=== PATIENT | female | born 1930 | race Caucasian/White ===

== ENCOUNTER 2016-07-08 16:01 | Emergency (ER) | payer MEDICARE, MEDICAID ==
[2016-07-26] MEDS ORDERED: COLACE-DPS100 MG PO (19:13)
[2016-07-26] MEDS ORDERED: COZAAR DPS50 MG PO (19:13)
[2016-07-26] MEDS ORDERED: ASA CHILDREN'S81 MG PO (19:13)
[2016-07-26] MEDS ORDERED: CATAPRES-DPS0.1 MG PO (19:13)
[2016-07-26] MEDS ORDERED: NORVASC5 MG PO (19:14)
[2016-07-26] MEDS ORDERED: FEOSOL-DPS325 MG PO (19:14)
[2016-07-26] MEDS ORDERED: LASIX DPS20 MG PO (19:14)
[2016-07-26] MEDS ORDERED: OMEGA-3 DPS1000 MG PO (19:14)
[2016-07-26] MEDS ORDERED: PEPCID DPS20 MG PO (19:14)
[2016-07-26] MEDS ORDERED: TENORMIN DPS50 MG PO (19:15)
[2016-07-26] MEDS ORDERED: SYNTHROID DP0.025 MG PO (19:15)
[2016-07-26] MEDS ORDERED: LEVAQUIN DPS250 MG PO (19:16)
[2016-07-26] MEDS ORDERED: FLAGYL-DPS500 MG PO (19:16)
[2016-07-26] MEDS ORDERED: FLEXERIL DPS5 MG PO (19:16)
[2016-07-26] MEDS ORDERED: MAALOX DPS30 ML PO (19:17)
[2016-07-26] MEDS ORDERED: LOMOTIL-DPS1 TAB PO (19:17)
[2016-07-26] MEDS ORDERED: NORCO 5-325 TA1 EACH PO (19:17)
[2016-07-26] MEDS ORDERED: MIRALAX PACKET17 GM PO (19:17)
[2016-07-26] MEDS ORDERED: TYLENOL DPS325 MG PO (19:18)
[2016-07-26] MEDS ORDERED: SURFAK DPS240 MG PO (19:18)
--- NOTE | 2016-08-21 15:33 | ER ---
ADMIT: 07/08/2016 RM/LOC: ER [facility] MR#: [id number] 2620 [facility] [address] [place], [place] [address] CODIE ORTIZ [address] [facility] [address] [place] [address] Emergency Room Report SEX: F AGE: 85 : 1930 DATE: 07/08/2016 ADDENDUM: This patient comes to the ER because she is having issues with constipation. She states she has not had a bowel movement for 5 days and has a lot of pain in her rectum. On physical exam, she does have tenderness in her rectum but I did not feel a fecal impaction. KUB showed increased stool. We did give her an enema, which was later repeated, and it gave her no relief here. We did send her home with mag citrate, and she is to go home, drink half a bottle tonight, and then half a bottle in the morning if she still has not had a bowel movement. She is also to call Dr. Ordonez tomorrow if she is not feeling better. Please see my T-sheet. SAMY Salmeron / Kieran Kuhn MD / frederick JOB #: [id number] CC: Kieran Kuhn MD, Attending Physician Natividad Ordonez MD, Family Physician
[2016-12-26] MEDS ORDERED: DULCOLAX-DPS10 MG PR (14:30)
[2016-12-26] MEDS ORDERED: CARAFATE DPS1 GM PO (14:31)
[2016-12-26] MEDS ORDERED: XANAX DPS0.25 MG PO (14:31)
[2016-12-26] MEDS ORDERED: TYLENOL DPS325 MG PO (14:31)
[2016-12-26] MEDS ORDERED: REQUIP1 MG PO (14:32)
[2016-12-26] MEDS ORDERED: COLACE-DPS100 MG PO (14:33)
== END 2016-07-08 18:52 | disposition home or self-care (01) ==
LOC: ER 16:01
DX: K59.00 Constipation, unspecified (principal); I10 Essential (primary) hypertension; E78.5 Hyperlipidemia, unspecified; Z88.0 Allergy status to penicillin; Z79.82 Long term (current) use of aspirin; Z79.899 Other long term (current) drug therapy

== ENCOUNTER 2016-07-22 17:01 | Inpatient (IN) | payer MEDICARE, MEDICAID ==
[~2016-07-22] VITALS: Ht 162.6 cm; Wt 57.1 kg
--- NOTE | 2016-07-25 08:02 | HP ---
ADMIT: 07/22/2016 RM/LOC: 619 [facility] MR#: [id number] 2620 [facility] [address] [place], [place] [address] CODIE ORTIZ [address] [facility] [address] [place] [address] History and Physical SEX: F AGE: 85 : 1930 DATE OF SERVICE: HISTORY OF PRESENT ILLNESS: She presents with abdominal distention. She presents to the office here at 03:30 in the afternoon. She reports that her abdomen has been distended since yesterday evening. She had several medium- size stools while developing abdominal distention, increasing abdominal pain; burping and belching, but she has not vomited. She has not eaten today. She has a past medical history of a possible volvulus dating back to 2007. She has not had any difficulty since that time. She does have a history of chronic lymphocytic leukemia with progressive elevation in her white blood cell count. Prior to this hospitalization, it had been running 40,000, it is 63,000 at the time of this dictation. She presents for further assessment of this abdominal distention. PAST MEDICAL HISTORY: She has a past medical history of congestive heart failure, degenerative joint disease, diverticular disease, hyponatremia, hyperlipidemia, hypertension, diverticulitis, reflux disease, hiatal hernia as well as this history of volvulus in the past, which resolved on its own apparently. History of lymphocytic leukemia. SOCIAL HISTORY: She lives at home independently. She is a former smoker. She is . FAMILY HISTORY: Noncontributory. ALLERGIES: SHE IS ALLERGIC TO PENICILLIN. CURRENT MEDICATIONS: As follows; she is on: 1. Alprazolam 0.25 mg one tablet every 8 hours p.r.n. anxiety. 2. Amlodipine 5 mg one tablet b.i.d. 3. Aspirin 81 mg daily. 4. Atenolol 50 mg one tablet b.i.d. 5. Carafate 1 g p.o. every p.m. 6. Clonidine 0.1 mg p.o. b.i.d. 7. Docusate sodium 100 mg daily. 8. Ferrous sulfate 325 mg daily. 9. Fish oil. 10.Flexeril 5 mg p.r.n. muscle spasm. 11.Lasix 20 daily. 12.Hydrocodone. 13.Levothyroxine 25 mcg daily. 14.Lomotil p.r.n. 15.Losartan 100 mg daily. 16.Nitroglycerin p.r.n. 17.Omeprazole 20 mg daily. 18.Ranitidine 150 mg one tablet p.o. b.i.d. 19.Tylenol p.r.n. PHYSICAL EXAMINATION: VITAL SIGNS: Today her weight is 128 pounds, her heart ADMIT: 07/22/2016 RM/LOC: 619 [facility] MR#: [id number] [address] [address] CODIE ORTIZ [address] [facility] [address] [place] [address] History and Physical SEX: F AGE: 85 : 1930 rate is 57, blood pressure is 151/48. ABDOMEN: Distended. She has very hypoactive bowel sounds. Her abdomen is tender to touch. It is distended and rounded. EXTREMITIES: No evidence of edema. HEART: Regular rhythm with a soft systolic murmur. ASSESSMENT: Admission of an elderly 85-year-old, who has had a history of "kinked bowel in the past," questionable volvulus dating back greater than 10 years with evidence of abdominal distention on plain film appears to have evidence of small-bowel dilatation consistent with possible small bowel obstruction. History of chronic lymphocytic leukemia with elevation in white blood cell count to 63,000. Evidence of anemia. Hyponatremia. At this time, we will admit to [facility]. We will start IV fluids, normal saline at 75 mL an hour and Pepcid IV. We will get further assessment with a CT scan of her abdomen and pelvis. We will ask Hematology to continue to follow her with her jump in her white blood cell count, get a peripheral smear. Also ask for surgical consultation. We will continue to follow closely. As per her request, she does not want her CLL treated. She had been on a treatment program within the last 6 months which she was intolerant to. Natividad Ordonez MD/ frederick JOB #: [id number] CC: Natividad Ordonez MD, Attending Physician Natividad Ordonez MD, Family Physician
[2016-07-26] MEDS ORDERED: COZAAR DPS50 MG PO (19:13)
[2016-07-26] MEDS ORDERED: COLACE-DPS100 MG PO (19:13)
[2016-07-26] MEDS ORDERED: ASA CHILDREN'S81 MG PO (19:13)
[2016-07-26] MEDS ORDERED: CATAPRES-DPS0.1 MG PO (19:13)
[2016-07-26] MEDS ORDERED: PEPCID DPS20 MG PO (19:14)
[2016-07-26] MEDS ORDERED: LASIX DPS20 MG PO (19:14)
[2016-07-26] MEDS ORDERED: NORVASC5 MG PO (19:14)
[2016-07-26] MEDS ORDERED: FEOSOL-DPS325 MG PO (19:14)
[2016-07-26] MEDS ORDERED: OMEGA-3 DPS1000 MG PO (19:14)
[2016-07-26] MEDS ORDERED: SYNTHROID DP0.025 MG PO (19:15)
[2016-07-26] MEDS ORDERED: TENORMIN DPS50 MG PO (19:15)
[2016-07-26] MEDS ORDERED: LEVAQUIN DPS250 MG PO (19:16)
[2016-07-26] MEDS ORDERED: FLEXERIL DPS5 MG PO (19:16)
[2016-07-26] MEDS ORDERED: FLAGYL-DPS500 MG PO (19:16)
[2016-07-26] MEDS ORDERED: NORCO 5-325 TA1 EACH PO (19:17)
[2016-07-26] MEDS ORDERED: LOMOTIL-DPS1 TAB PO (19:17)
[2016-07-26] MEDS ORDERED: MAALOX DPS30 ML PO (19:17)
[2016-07-26] MEDS ORDERED: MIRALAX PACKET17 GM PO (19:17)
[2016-07-26] MEDS ORDERED: SURFAK DPS240 MG PO (19:18)
[2016-07-26] MEDS ORDERED: TYLENOL DPS325 MG PO (19:18)
--- NOTE | 2016-07-27 09:02 | CO ---
ADMIT: 07/22/2016 RM/LOC: 619 [facility] MR#: [id number] [address] [facility] [address] [place], [place] [address] CODIE ORTIZ [address] [address] Consultation SEX: F AGE: 85 : 1930 DATE OF CONSULTATION: 07/24/2016 ATTENDING PHYSICIAN: Natividad Ordonez MD CONSULTING PHYSICIAN: Roland Costa MD PROBLEM: Air within the bladder. HISTORY OF PRESENT ILLNESS: This 85-year-old female was hospitalized due to abdominal distention presenting to Dr. Ordonez's office on 07/22/2016. During her evaluation in the hospital, an abdominal and pelvic CT scan was obtained revealing normal upper tracts; however, there was a small amount of air within the bladder prompting urologic consultation. According to Ms. Ortiz, she has been voiding without urgency, frequency, hesitancy, strain to void or a feeling of incomplete emptying. There has been no pneumaturia or recurrent urinary tract infections. She has had no previous urologic surgery. She denies history of nephrolithiasis. PAST MEDICAL HISTORY: MEDICATIONS: 1. Amlodipine 5 mg b.i.d. 2. Aspirin 81 mg daily. 3. Atenolol 50 mg b.i.d. 4. Carafate 1 g in the evening. 5. Clonidine 0.1 mg b.i.d. 6. Docusate sodium 100 mg daily. 7. Ferrous sulfate 325 mg daily. 8. Fish oil. 9. Flexeril 5 mg p.r.n. 10.Lasix 20 mg daily. 11.Hydrocodone p.r.n. 12.Levothyroxine 25 mcg daily. 13.Lomotil p.r.n. 14.Losartan 100 mg daily. 15.Nitroglycerin p.r.n. 16.Omeprazole 20 mg daily. 17.Amantadine 150 mg b.i.d. 18.Tylenol p.r.n. ALLERGIES: Penicillin. OPERATIONS: None. REVIEW OF SYSTEMS: She does have a history of congestive heart failure, degenerative joint disease, diverticular disease, hyponatremia, hyperlipidemia, essential hypertension, gastroesophageal reflux disease, hiatal hernia along with a volvulus, also lymphocytic leukemia. FAMILY HISTORY: Negative for urologic problem. ADMIT: 07/22/2016 RM/LOC: 619 [facility] MR#: [id number] [address] [address] CODIE ORTIZ [address] [place] [address] Consultation SEX: F AGE: 85 : 1930 SOCIAL HISTORY: She lives at home independently. She is a former smoker, and she is . PHYSICAL EXAMINATION: GENERAL: This is a healthy-appearing, 85-year-old, in no acute distress. HEENT: Unremarkable. NECK: Supple without adenopathy. ABDOMEN: Soft, slightly distended, but nontender to palpation throughout. EXTREMITIES: Full range of motion without deformity. NEUROLOGICAL: She is grossly intact. LABORATORY DATA: Sodium 137, potassium 4.0, chloride 107, CO2 of 23, BUN 8, glucose 90, and creatinine of 0.8. CBC showed a white count of 36,100, and hematocrit of 30.0. Urinalysis did demonstrate a positive nitrites with 1+ protein without leukocyte and was leukocyte negative. ASSESSMENT: Recent findings of air within the bladder, which may or may not being anything at this point given the fact that she has no infection. She has had no pneumaturia. 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 PLAN: Once the patient is home, we will range for her to return to the office for office cystoscopy. Thank you for allowing us to assist in the care of Ms. Ortiz, and we will keep you informed as to her followup. R Maxim Costa MD/ frederick JOB #: [id number] CC: Natividad Ordonez MD, Attending Physician Natividad Ordonez MD, Family Physician Natividad Ordonez MD
--- NOTE | 2016-08-01 08:22 | DS ---
ADMIT: 07/22/2016 RM/LOC: 619 [facility] MR#: [id number] 26[address] [facility] [address] [place], [place] [address] LAILA ORTIZ [address] [facility] [address] [place] [address] Discharge Summary SEX: F AGE: 85 : 1930 ADMISSION DATE: 07/22/2016 DISCHARGE DATE: 07/25/2016 DISCHARGE DIAGNOSES: 1. Abdominal distention, evidence of a colonic ileus, air and debris in bladder with planned outpatient evaluation by Dr. Costa with cystoscopy. 2. History of congestive heart failure. 3. History of hyponatremia. 4. History of lymphocytic leukemia. 5. Hyperlipidemia. 6. Hypertension. 7. Diverticular disease. 8. Reflux disease. HISTORY OF PRESENT ILLNESS: Well documented in her H and P. consultations were obtained through Surgery as well as Urology. Her laboratory and radiographic assessment is as follows. On admission, her white count was 58,000, hemoglobin 10.8, and platelet count of 34,000. Discharge white count of 36.1. Urinalysis showed 1+ protein, nitrites positive, leukocytes negative. Serum chemistry showed sodium 139, potassium 4.1, BUN and creatinine of 11 and 0.9, albumin 2.8. CT of her abdomen showed moderate constipation with few mildly prominent loops of small bowel. Findings are nonspecific, however, earlier partial small bowel obstruction cannot be excluded. There is [id number] amount of ascites within the abdomen and pelvis, etiology uncertain. CTA of chest showed 11-mm ground-glass nodule in the posterior aspect of the right upper lobe, 6-month followup is considered. Right-sided pleural effusion with moderate compression atelectasis. Chest x-ray showed chronic interstitial markings that are slightly more prominent than on the previous exam, underlying inflammatory changes cannot be excluded. Small right-sided pleural effusion. Her abdominal flat plate, persistent nonspecific bowel gas pattern. Ultrasound of kidneys, no hydronephrosis. Debris along the posterior wall of the bladder, this could be due to infection or possible hemorrhage, probable air causing artifact anteriorly within the bladder. EKG showed sinus bradycardia. HOSPITAL COURSE: Laila is a well-known patient of mine, who has a past medical history of chronic lymphocytic leukemia. She also has a history of known coronary disease, hypertension, hyperlipidemia, reflux disease, hiatal hernia, and hyponatremia. She was admitted to the hospital after 24 hour period of abdominal bloating and belching. She has had a history of partial small bowel obstruction dating back 10 years ago. She has a flat plate of her abdomen done in the office which showed what I felt was small bowel dilatation. Subsequently was admitted to [facility] for further evaluation and care. We did ask Surgery to follow as well as Hematology to follow. She was placed on Unasyn and morphine. UA was obtained. As she was allergic to Unasyn, she was changed to Levaquin and Flagyl by Dr. Reyez. As per her request, she is a DNR status. It was noted on her CT scan that there was questionable air in the bladder as well as ADMIT: 07/22/2016 RM/LOC: 619 [facility] MR#: [id number] [address] [place] [id number] LAILA ORTIZ [address] [facility] [address] [place] [address] Discharge Summary SEX: F AGE: 85 : 1930 debris. I did ask Dr. Costa to follow. She was also noted to have a nodularity present in her lungs as well as right scapular changes. Further evaluation was obtained with CT of chest. She continued to have improvement. She started to pass gas as well as have bowel movements. Her abdominal distention did resolve. She had evidence of mild renal insufficiency and her medications were changed as appropriate. Levaquin was decreased to 250 mg IV daily. Her white count did come down. Her diet was advanced. She was followed daily by surgery. Activity level was increased. She was subsequently discharged with improvement of her bowels less distention. She will have outpatient assessment of her bladder with cystoscopy. In addition, we set her up for a CT scan of her chest in 6 weeks. She will follow up with me in less than a week. She was discharged home in stable condition. We will follow her up in clinic as need be, but we will see her again in a week. Please see her medications at discharge per her MAR. Natividad Ordonez MD/ frederick JOB #: [id number] CC: Natividad Ordonez MD, Attending Physician Natividad Ordonez MD, Family Physician
--- NOTE | 2016-08-14 10:45 | CO ---
ADMIT: 07/22/2016 RM/LOC: 619 [facility] MR#: [id number] 2620 [facility] [address] [place], [place] [address] CODIE ORTIZ [address] [address] Consultation SEX: F AGE: 85 : 1930 DATE OF CONSULTATION: 07/22/2016 ATTENDING PHYSICIAN: Natividad Ordonez MD CONSULTING PHYSICIAN: Edmond Reyez MD CHIEF COMPLAINT: Abdominal discomfort and abdominal distention, history of CLL, question small bowel obstruction. HISTORY OF PRESENT ILLNESS: This is a pleasant 85-year-old female patient whom I know from several years ago. I had actually done an EGD and colonoscopy on her back in August of 2007. At that time, she had a very difficult colonoscopy. In fact, I was unable to get through the colon due to the tortuosity of her sigmoid colon. We did an air contrast barium enema, which she was unable to then pass the contrast. After that, she had to be admitted for pain control and to allow the contrast to pass out. She ultimately underwent a laparoscopic Bill fundoplication shortly thereafter on 10/01/2007. She did have a small hiatal hernia and reflux. This was done around a 48-[place] bougie. The surgery went well and she recovered nicely from that. She now though has a diagnosis of CLL which she had started treatment with some chemotherapy about a month ago, I think she said June 22. She only tolerated about 5 days of that because it caused abdominal distention and abdominal pain for her, so she has been off the treatment since then. Her white count has always been elevated. In fact with the treatment, it was as high as 70,000. Now here today, it has been anywhere from 40,000 up to over 50,000 on a recheck it sounds like. She has had intermittent chills for last several months. She has not felt hungry. She says her appetite has been pretty poor. She has been able to pass bowel movements and flatus even as recently as today this morning. She says she had pretty normal bowel movements yesterday. She has not really necessarily been nauseated. She has had some belching a little bit. She has been able to tolerate liquids though throughout the day. She has not necessarily had a fever that she is aware of. She was admitted by Dr. Ordonez because of this abdominal distention and discomfort for IV fluids and bowel rest, and I was asked to see in surgical consultation. The patient has never had a bowel obstruction before, but again she did have that ileus or difficulty passing flatus after the colonoscopy back in 2007 and has a known very tortuous sigmoid colon with numerous diverticula. She cannot really locate a specific area that hurts her more than another area that is kind of diffuse abdominal discomfort for her at this time. PAST MEDICAL HISTORY: Illnesses again include the CLL. PAST SURGICAL HISTORY: She has had an open cholecystectomy, laparoscopic Bill fundoplication, then a vaginal hysterectomy. ALLERGIES: I BELIEVE ARE NONE. MEDICATIONS: All well outlined on the chart. Of note, she had been on a ADMIT: 07/22/2016 RM/LOC: 619 [facility] MR#: [id number] [address] [address] CODIE ORTIZ [address] [place] [address] Consultation SEX: F AGE: 85 : 1930 chemo drug, but that has currently been held, it sounds like. SOCIAL HISTORY: I believe she lives independently. She denies tobacco. No alcohol use. FAMILY HISTORY: Noncontributory. REVIEW OF SYSTEMS: A 10-point review of systems is essentially negative with the exception of her current abdominal distention, decreased bowel movements although she had been passing normal bowel movements as recently as yesterday and some flatus even this morning. Some nausea but no vomiting. She does have a little bit of belching with this. PHYSICAL EXAMINATION: GENERAL: She is alert. She is oriented. She is sitting up in the chair. She seems pretty comfortable at this time. VITAL SIGNS: Stable. HEENT: Normal. No adenopathy. LUNGS: Clear bilaterally. HEART: Regular. She does have a slight murmur heard best at left 2nd intercostal space. ABDOMEN: Thin but it is obviously distended, somewhat tympanitic. She does have some mild discomfort throughout but no peritoneal signs. No guarding. No rebound. Her belly is actually pretty soft. I was able to press on her pretty hard, and she again is uncomfortable diffusely. If having it localized to one particular area, maybe the left lower quadrant is the most uncomfortable spot for her, but again nothing that I would call peritoneal signs at this time. No masses are appreciated. No organomegaly is noted. EXTREMITIES: Warm and pink without edema. LABORATORY DATA: Sodium is 132, potassium of 4.0, chloride of 97, CO2 28, BUN of 13, creatinine of 1, glucose 89. Her albumin is 3.1. LFTs are all normal. White blood cell count is 40.6, hemoglobin of 9.9, and platelets of 209. Differential shows 35% lymphocytes, 4.1 neutrophils which was in the normal range. CT scan of the abdomen and pelvis again does reveal some distended loops of small bowel as well as distended colon. Her stomach does not appear terribly dilated. She does have the ascites and question some inflammatory change around the left colon. She has numerous diverticula and a lot of tortuosity of the sigmoid colon that could be seen on the CAT scan. ASSESSMENT: Question early small bowel obstruction versus ileus versus early diverticulitis. The ascites does make it a little more difficult to interpret on the CT scan. The CLL, with her elevated white count, also makes things a ADMIT: 07/22/2016 RM/LOC: 619 [facility] MR#: [id number] [address] [address] CODIE ORTIZ [address] [facility] [address] [place] [address] Consultation SEX: F AGE: 85 : 1930 little more difficult. Her abdomen is soft at this time and does not appear to be a surgical abdomen. PLAN: We are going to try to manage things nonoperatively. She is getting IV fluids. I am going to cover her with some antibiotics. We will try Unasyn 3 g IV q.6 hours just to ensure that we are not missing anything as far as diverticulitis goes. I will reexamine her in the morning and hopefully be able to treat things nonoperatively. She does understand if things worsen, she may ultimately need an NG tube. She may ultimately require surgical intervention. She also understands that I will be out of town the next few days, and so I will discuss her case with one my partners who will be rounding in my absence. Edmond Reyez MD/ frederick JOB #: [id number] CC: Natividad Ordonez MD, Attending Physician Natividad Ordonez MD, Family Physician
[2016-12-26] MEDS ORDERED: DULCOLAX-DPS10 MG PR (14:30)
[2016-12-26] MEDS ORDERED: XANAX DPS0.25 MG PO (14:31)
[2016-12-26] MEDS ORDERED: TYLENOL DPS325 MG PO (14:31)
[2016-12-26] MEDS ORDERED: CARAFATE DPS1 GM PO (14:31)
[2016-12-26] MEDS ORDERED: REQUIP1 MG PO (14:32)
[2016-12-26] MEDS ORDERED: COLACE-DPS100 MG PO (14:33)
== END 2016-07-25 16:21 | disposition home or self-care (01) | DRG 389 ==
LOC: 6PED 17:01
PROVIDERS: ADMIT Internal Medicine
DX: K56.60 Unspecified intestinal obstruction (principal); R18.8 Other ascites; C91.10 Chronic lymphocytic leukemia of B-cell type not having achieved remission; I50.9 Heart failure, unspecified; E87.1 Hypo-osmolality and hyponatremia; I11.0 Hypertensive heart disease with heart failure; R14.0 Abdominal distension (gaseous); M19.90 Unspecified osteoarthritis, unspecified site; N28.9 Disorder of kidney and ureter, unspecified; N32.9 Bladder disorder, unspecified; R91.8 Other nonspecific abnormal finding of lung field; I25.10 Atherosclerotic heart disease of native coronary artery without angina pectoris; K57.90 Diverticulosis of intestine, part unspecified, without perforation or abscess without bleeding; D64.9 Anemia, unspecified; E78.5 Hyperlipidemia, unspecified; K21.9 Gastro-esophageal reflux disease without esophagitis; K44.9 Diaphragmatic hernia without obstruction or gangrene; Z87.891 Personal history of nicotine dependence; Z79.82 Long term (current) use of aspirin; Z66 Do not resuscitate